=== PATIENT | female | born 1965 | race African-American/Black ===

== ENCOUNTER 2017-11-26 11:02 | Inpatient (IN) | payer OTHER ==
[2017-11-26 11:22] VITALS: BMI 28.8
--- NOTE | 2017-11-26 15:15 | HP ---
COWS - Scale Resting Pulse: 0= [place] 80 or Below Sweatin= Chills/Flushing Restless Observation: 0= Sits Still Pupil Size: 0= Normal to Room Light Bone or Joint Aches: 2= Severe Diffuse Aches Runny Nose/ Eye Tearin= Runny Nose/Eyes GI Upset > 30mins: 3= Vomiting/Diarrhea Tremor Observation: 0= None Yawning Observation: 1= 1-2x During Session Anxiety or Irritability: 2=Irritable/Anxious Goose Flesh Skin: 3=Piloerection COWS Score: 14 Admission ROS S - HPI Chief Complaint: "I need to get help." Patient is here to Detox fro Heroin. Allergies/Adverse Reactions: Allergies Allergy/AdvReac Type Severity Reaction Status Date / Time No Known Allergies Allergy Verified 11/26/17 14:15 History of Present Illness: Patient is a 52 YO female here to Detox from Heroin. This is patient's first detox admission at [facility]. Patient had a Detox admission at [facility] ( [place], [place] in 2017. Exam Limitations: No Limitations - Ebola screening Have you traveled outside of the country in the last 21 days: No Have you had contact with anyone from an Ebola affected area: No Have you been sick,other than usual withdrawal symptoms: No Do you have a fever: No - Review of Systems Constitutional: Chills, Diaphoresis, Fever, Malaise, Night Sweats, Changes in sleep EENT: reports: Blurred Vision, Nose Congestion, Sinus Pressure Respiratory: reports: No Symptoms reported Cardiac: reports: No Symptoms Reported GI: reports: Diarrhea, Nausea, Vomiting, Abdominal cramping : reports: No Symptoms Reported Musculoskeletal: reports: No Symptoms Reported Integumentary: reports: No Symptoms Reported Neuro: reports: No Symptoms reported Endocrine: reports: No Symptoms Reported Hematology: reports: No Symptoms Reported Psychiatric: reports: Judgement Intact, Mood/Affect Appropiate, Orientated x3, Anxious, Depressed (Meds. in past; none Currently. Zoenolanbrit sees a Psychiatrist as an outpatient; declnies to have Psychaitric consultation while admitted for Detox.) Other Systems: Reviewed and Negative Patient History - Patient Medical History Hx Anemia: No Hx Asthma: No Hx Chronic Obstructive Pulmonary Disease (COPD): No Hx Cancer: No Hx Cardiac Disorders: No Hx Congestive Heart Failure: No Hx Hypertension: No Hx Hypercholesterolemia: No Hx Pacemaker: No HX Cerebrovascular Accident: No Hx Seizures: No Hx Dementia: No Hx Diabetes: No Hx Gastrointestinal Disorders: No Hx Liver Disease: No Hx Genitourinary Disorders: No Hx Sexually Transmitted Disorders: No Hx Renal Disease (ESRD): No Hx Thyroid Disease: No Hx Human Immunodeficiency Virus (HIV): No (Last Tested: 06/2017) Hx Hepatitis C: No (Last Tested: 06/2017) Hx Depression: Yes (Meds. in past, none currently.) Hx Suicide Attempt: No (PATIENT DENIES CURRENT SI / HI.) Hx Bipolar Disorder: No Hx Schizophrenia: No Other Medical History: DENIES. - Patient Surgical History Past Surgical History: No Hx Neurologic Surgery: No Hx Cataract Extraction: No Hx Cardiac Surgery: No Hx Lung Surgery: No Hx Breast Surgery: No Hx Breast Biopsy: No Hx Abdominal Surgery: No Hx Appendectomy: No Hx Cholecystectomy: No Hx Genitourinary Surgery: No Hx Section: No Hx Orthopedic Surgery: No Other Surgical History: DENIES. Anesthesia Reaction: No - PPD History Previous Implant?: Yes Documented Results: Negative w/o proof Implanted On Prior [facility] Admission?: No PPD to be Administered?: Yes - Reproductive History Patient is a Female of Child Bearing Age (11 -55 yrs old): Yes LMP comment: 2013 Patient : No - Smoking Cessation Smoking history: Current every day smoker Have you smoked in the past 12 months: Yes Aproximately how many cigarettes per day: 10 Cigars Per Day: 0 Hx Chewing Tobacco Use: No Initiated information on smoking cessation: Yes 'Breaking Loose' booklet given: 11/26/17 (GIVEN TO PATIENT.) - Substance & Tx. History Hx Alcohol Use: No Hx Substance Use: Yes Substance Use Type: Cocaine, Heroin Hx Substance Use Treatment: Yes (Previous Detox admisision at [facility] ([place], [place]): 2017) - Substances Abused Heroin Route: Inhalation Frequency: Daily Amount used: 8-9 bags Age of first use: 15 Date of Last Use: 11/25/17 Crack Route: Smoking Frequency: Daily Amount used: $50-60 Age of first use: 15 Date of Last Use: 11/25/17 Family Disease History - Family Disease History Family History: Denies Admission Physical Exam BHS - Vital Signs Vital Signs: Vital Signs - 24 hr 11/26/17 11:16 Temperature 96.7 F L Pulse Rate 69 Respiratory 20 Rate Blood Pressure 129/74 - Physical General Appearance: Yes: No Apparent Distress, Nourished, Appropriately Dressed HEENTM: Yes: Hearing grossly Normal, Normocephalic, Normal Voice, CRISTEL, Pharynx Normal Respiratory: Yes: Chest Non-Tender, Lungs Clear, No Respiratory Distress, No Accessory Muscle Use Neck: Yes: No masses,lesions,Nodules, Supple, Trachea in good position Breast: Yes: Breast Exam Deferred Cardiology: Yes: Regular Rhythm, Regular Rate, S1, S2 Abdominal: Yes: Normal Bowel Sounds, Non Tender, Flat, Soft Genitourinary: Yes: Within Normal Limits Back: Yes: Normal Inspection Musculoskeletal: Yes: full range of Motion, Gait Steady Extremities: Yes: Normal Capillary Refill, Normal Range of Motion, Non-Tender Neurological: Yes: Fully Oriented, Alert, Normal Mood/Affect, Normal Response Integumentary: Yes: Normal Color, Dry, Warm Lymphatic: Yes: Within Normal Limits - Diagnostic (1) Opioid dependence with withdrawal Current Visit: Yes Status: Acute (2) Cocaine dependence, uncomplicated Current Visit: Yes Status: Acute (3) Nicotine dependence Current Visit: Yes Status: Chronic Qualifiers: Nicotine product type: cigarettes Substance use status: uncomplicated Qualified Code(s): F17.210 - Nicotine dependence, cigarettes, uncomplicated (4) History of depression Current Visit: Yes Status: Suspected Cleared for Admission [facility] - Detox or Rehab [facility] Level of Care: Medically Managed Detox Regimen/Protocol: Methadone [facility] Breath Alcohol Content Breath Alcohol Content: 0 Urine Pregancy Test - Result Urine Test Results: Negative- NO Line Present Urine Drug Screen - Results Drug Screen Negative: No Urine Drug Screen Results: PATY-Cocaine, OPI-Opiates, MTD-Methadone
[2017-11-26] MEDS ORDERED: MAGNESIUM HYDROX 2400MG/30ML ORAL SUSPENSION 30 ML CUP PO PRN (15:30)
[2017-11-26] MEDS ORDERED: NICOTINE POLACRILEX 2 MG GUM BC PRN (15:30)
[2017-11-26] MEDS ORDERED: METHADONE HCL 10 MG TABLET (FOR DETOX USE ONLY) PO ONE ×2 (15:30→23:00)
[2017-11-26] MEDS ORDERED: guaiFENesin/D-METHORPHAN HB 10 ML UNIT-DOSE CUPS PO PRN (15:30)
[2017-11-26] MEDS ORDERED: LOPERAMIDE HCL 2 MG CAPSULE PO PRN (15:30)
[2017-11-26] MEDS ORDERED: P-EPHED 60MG/TRIPROLIDI 2.5MG TABLET PO PRN (15:30)
[2017-11-26] MEDS ORDERED: MAG HYDROX/AL HYDROX/SIMETH 30 ML UNIT-DOSE CUP PO PRN (15:30)
[2017-11-26] MEDS ORDERED: MAGNESIUM CITRATE 300 ML BOTTLE PO PRN (15:30)
[2017-11-26] MEDS ORDERED: IBUPROFEN 400 MG TABLET (FP) PO PRN (15:30)
[2017-11-26] MEDS ORDERED: ACETAMINOPHEN 325 MG TABLET (FP) PO PRN (15:30)
[2017-11-26] MEDS ORDERED: MENTHOL/PHENOL 1 EACH UD MM PRN (15:30)
[2017-11-26] MEDS: diazePAM 5 MG TABLET PO PRN ×2 (17:20→22:21)
[2017-11-26] MEDS: NICOTINE 21 MG/24 HOURS TOPICAL PATCH TD SCH (17:21)
[2017-11-26] MEDS: THIAMINE HCL 100 MG TABLET (FP) PO SCH (22:21)
[2017-11-26] MEDS: MELATONIN 5 MG TABLETS PO PRN (22:22)
[2017-11-27 03:27] LABS: URINE APPEARANCE TURBID; URINE BILIRUBIN NEGATIVE (<2.0 mg/dL); URINE BLOOD NEGATIVE (NEGATIVE); URINE COLOR AMBER; URINE GLUCOSE (UA) NEGATIVE (NEGATIVE); URINE KETONE TRACE (NEGATIVE); URINE LEUK ESTERASE NEGATIVE (NEGATIVE); URINE NITRITE NEGATIVE (NEGATIVE)
[2017-11-27 03:39] LABS: URINE PROTEIN 1+ (NEGATIVE)
[2017-11-27 03:43] LABS: EPI CELLS MANY /HPF (FEW); URINE BACTERIA RARE /hpf (NONE SEEN); URINE HYALINE CAST 4 /lpf; URINE MUCUS RARE
[2017-11-27] MEDS: diazePAM 5 MG TABLET PO PRN ×4 (05:28→22:30)
[2017-11-27] MEDS ORDERED: METHADONE HCL 10 MG TABLET (FOR DETOX USE ONLY) PO ONE (10:00)
[2017-11-27] MEDS: PRENATAL VITAMINS W/ FOLIC ACID TABLET (FP) PO SCH (10:37)
[2017-11-27] MEDS: NICOTINE 21 MG/24 HOURS TOPICAL PATCH TD SCH (10:38)
[2017-11-27 11:16] LABS: HEMATOCRIT 33.6 % (32.4-45.2); HEMOGLOBIN 10.9 GM/dL (10.7-15.3); MCHC 32.4 g/dl (32.0-36.0); MEAN CELL VOLUME 92.6 fl (80-96); MEAN PLT VOLUME 8.1 fl (7.5-11.1); PLATELET COUNT 192 K/MM3 (134-434); RBC 3.63 M/mm3 (3.60-5.2); RDW 14.2 % (11.6-15.6); WHITE BLOOD COUNT 3.9 K/mm3 (4.0-10.0)
[2017-11-27 11:44] LABS: CHLORIDE 108 mmol/L (98-107); SODIUM 144 mmol/L (136-145)
--- NOTE | 2017-11-27 14:24 | PN ---
BHS COWS - Scale Resting Pulse: 0= [place] 80 or Below Sweatin= Chills/Flushing Restless Observation: 3= Extraneous Movement Pupil Size: 1= Pupils >than Normal Bone or Joint Aches: 2= Severe Diffuse Aches Runny Nose/ Eye Tearin= Runny Nose/Eyes GI Upset > 30mins: 2= Nausea/Diarrhea Tremor Observation of Outstretched Hands: 2= Slight Tremor Visible Yawning Observation: 1= 1-2x During Session Anxiety or Irritability: 2=Irritable/Anxious Goose Flesh Skin: 0=Smooth Skin COWS Score: 16 S Progress Note (SOAP) Subjective: ALERT,IRRITABLE,ANXIOUS,INTERRUPTED SLEEP,TREMOR,PAIN IN THE BODY AND BACK Objective: 11/27/17 14:21 Vital Signs Temperature 97.9 F 11/27/17 11:13 Pulse Rate 66 11/27/17 11:13 Respiratory Rate 18 11/27/17 11:13 Blood Pressure 123/77 11/27/17 11:13 O2 Sat by Pulse Oximetry (%) EKG SINUS BRADYCARDIA 59/MIN,INVERTED T IN 3,AVF,PROLONG QT 450/445 NO CHEST PAIN,NO SOB,NO DIZZINESS 11/27/17 14:23 Laboratory Last Values WBC 3.9 K/mm3 (4.0-10.0) L 11/27/17 06:20 RBC 3.63 M/mm3 (3.60-5.2) 11/27/17 06:20 Hgb 10.9 GM/dL (10.7-15.3) 11/27/17 06:20 Hct 33.6 % (32.4-45.2) 11/27/17 06:20 MCV 92.6 fl (80-96) 11/27/17 06:20 MCH 30.0 pg (25.7-33.7) 11/27/17 06:20 MCHC 32.4 g/dl (32.0-36.0) 11/27/17 06:20 RDW 14.2 % (11.6-15.6) 11/27/17 06:20 Plt Count 192 K/MM3 (134-434) 11/27/17 06:20 MPV 8.1 fl (7.5-11.1) 11/27/17 06:20 Sodium 144 mmol/L (136-145) 11/27/17 06:20 Potassium 4.0 mmol/L (3.5-5.1) 11/27/17 06:20 Chloride 108 mmol/L (98-107) H 11/27/17 06:20 Urine Color [place] 11/26/17 23:26 Urine Appearance Turbid 11/26/17 23:26 Urine pH 5.0 (5.0-8.0) 11/26/17 23:26 Ur Specific [place] 1.026 (1.001-1.035) 11/26/17 23:26 Urine Protein 1+ (NEGATIVE) H 11/26/17 23:26 Urine Glucose (UA) Negative (NEGATIVE) 11/26/17 23:26 Urine Ketones Trace (NEGATIVE) H 11/26/17 23:26 Urine Blood Negative (NEGATIVE) 11/26/17 23:26 Urine Nitrite Negative (NEGATIVE) 11/26/17 23:26 Urine Bilirubin Negative (<2.0 mg/dL) 11/26/17 23:26 Urine Urobilinogen 2.0 mg/dL (0.2-1.0) H 11/26/17 23:26 Ur Leukocyte Esterase Negative (NEGATIVE) 11/26/17 23:26 Urine WBC (Auto) 1 /hpf (3-5) 11/26/17 23:26 Urine RBC (Auto) 7 /hpf (0-3) 11/26/17 23:26 Ur Epithelial Cells Many /HPF (FEW) 11/26/17 23:26 Urine Bacteria Rare /hpf (NONE SEEN) 11/26/17 23:26 Hyaline Casts 4 /lpf 11/26/17 23:26 Urine Mucus Rare 11/26/17 23:26 RPR Titer Nonreactive (NONREACTIVE) 11/27/17 06:20 11/27/17 14:23 LABS PENDING Assessment: 11/27/17 14:22 WITHDRAWAL SYMPTOM Plan: CONTINUE DETOX
[2017-11-27] MEDS: CYCLOBENZAPRINE HCL 10 MG TABLET (FP) PO PRN (14:25)
[2017-11-27] MEDS: cloNIDine HCL 0.1 MG TABLET PO SCH ×2 (14:25→22:30)
[2017-11-27 14:42] LABS: ALBUMIN 3.4 g/dl (3.4-5.0); ALK PHOS 110 U/L (45-117); ANION GAP 3 (8-16); BLOOD UREA NITROGEN 11 mg/dL (7-18); CALCIUM 8.6 mg/dL (8.5-10.1); CO2 27 mmol/L (21-32); CREATININE 1.1 mg/dL (0.55-1.02); GLUCOSE,RANDOM 74 mg/dL (74-106); SGOT/AST 26 U/L (15-37); SGPT/ALT 25 U/L (12-78); TOT PROT 6.8 g/dl (6.4-8.2)
[2017-11-27 14:44] LABS: BILIRUBIN,TOTAL < 0.1 mg/dL (0.2-1.0)
--- NOTE | 2017-11-27 18:29 | EKG ---
Test Reason : Blood Pressure : / mmHG Vent. Rate : 056 BPM Atrial Rate : 056 BPM P-R Int : 154 ms QRS Dur : 078 ms QT Int : 446 ms P-R-T Axes : 053 056 025 degrees QTc Int : 430 ms SINUS BRADYCARDIA WITH SINUS ARRHYTHMIA NONSPECIFIC T WAVE ABNORMALITY POSSIBLE OLD LATERAL INFARCT ABNORMAL ECG NO PREVIOUS ECGS AVAILABLE Confirmed by MD GHULAM, VENKAT ([id number]) on 11/27/2017 6:28:49 PM Referred By: Confirmed By:VENKAT PARMAR MD
[2017-11-27] MEDS: THIAMINE HCL 100 MG TABLET (FP) PO SCH (22:30)
[2017-11-28] MEDS: CYCLOBENZAPRINE HCL 10 MG TABLET (FP) PO PRN (04:27)
[2017-11-28] MEDS ORDERED: METHADONE HCL 5 MG TABLET (FOR DETOX USE ONLY) PO ONE (10:00)
[2017-11-28] MEDS: PRENATAL VITAMINS W/ FOLIC ACID TABLET (FP) PO SCH (10:46)
[2017-11-28] MEDS: diazePAM 5 MG TABLET PO PRN (10:46)
[2017-11-28] MEDS: NICOTINE 21 MG/24 HOURS TOPICAL PATCH TD SCH (10:46)
[2017-11-28] MEDS: cloNIDine HCL 0.1 MG TABLET PO SCH ×2 (10:47→22:15)
--- NOTE | 2017-11-28 11:00 | PN ---
BHS COWS - Scale Resting Pulse: 1= [place] 81-100 Sweatin= Chills/Flushing Restless Observation: 1= Difficult to Sit Still Pupil Size: 1= Pupils >than Normal Bone or Joint Aches: 1= Mild Discomfort Runny Nose/ Eye Tearin= Nasal Congestion GI Upset > 30mins: 1= Stomach Cramp Tremor Observation of Outstretched Hands: 2= Slight Tremor Visible Yawning Observation: 2= >3x During Session Anxiety or Irritability: 2=Irritable/Anxious Goose Flesh Skin: 0=Smooth Skin COWS Score: 13 BHS Progress Note (SOAP) Subjective: joint ache body pain sweat tremor anxiety restlessness irritable Objective: 11/28/17 10:58 Vital Signs Temperature 97.3 F L 11/28/17 10:00 Pulse Rate 63 11/28/17 10:00 Respiratory Rate 18 11/28/17 10:00 Blood Pressure 109/70 11/28/17 10:00 O2 Sat by Pulse Oximetry (%) Laboratory Last Values WBC 3.9 K/mm3 (4.0-10.0) L 11/27/17 06:20 RBC 3.63 M/mm3 (3.60-5.2) 11/27/17 06:20 Hgb 10.9 GM/dL (10.7-15.3) 11/27/17 06:20 Hct 33.6 % (32.4-45.2) 11/27/17 06:20 MCV 92.6 fl (80-96) 11/27/17 06:20 MCH 30.0 pg (25.7-33.7) 11/27/17 06:20 MCHC 32.4 g/dl (32.0-36.0) 11/27/17 06:20 RDW 14.2 % (11.6-15.6) 11/27/17 06:20 Plt Count 192 K/MM3 (134-434) 11/27/17 06:20 MPV 8.1 fl (7.5-11.1) 11/27/17 06:20 Sodium 144 mmol/L (136-145) 11/27/17 06:20 Potassium 4.0 mmol/L (3.5-5.1) 11/27/17 06:20 Chloride 108 mmol/L (98-107) H 11/27/17 06:20 Carbon Dioxide 27 mmol/L (21-32) 11/27/17 06:20 Anion Gap 3 (8-16) L 11/27/17 06:20 BUN 11 mg/dL (7-18) 11/27/17 06:20 Creatinine 1.1 mg/dL (0.55-1.02) H 11/27/17 06:20 Creat Clearance w eGFR 51.76 (>60) 11/27/17 06:20 Random Glucose 74 mg/dL (74-106) 11/27/17 06:20 Calcium 8.6 mg/dL (8.5-10.1) 11/27/17 06:20 Total Bilirubin < 0.1 mg/dL (0.2-1.0) L 11/27/17 06:20 AST 26 U/L (15-37) 11/27/17 06:20 ALT 25 U/L (12-78) 11/27/17 06:20 Alkaline Phosphatase 110 U/L (45-117) 11/27/17 06:20 Total Protein 6.8 g/dl (6.4-8.2) 11/27/17 06:20 Albumin 3.4 g/dl (3.4-5.0) 11/27/17 06:20 Urine Color [place] 11/26/17 23:26 Urine Appearance Turbid 11/26/17 23:26 Urine pH 5.0 (5.0-8.0) 11/26/17 23:26 Ur Specific [place] 1.026 (1.001-1.035) 11/26/17 23:26 Urine Protein 1+ (NEGATIVE) H 11/26/17 23:26 Urine Glucose (UA) Negative (NEGATIVE) 11/26/17 23:26 Urine Ketones Trace (NEGATIVE) H 11/26/17 23:26 Urine Blood Negative (NEGATIVE) 11/26/17 23:26 Urine Nitrite Negative (NEGATIVE) 11/26/17 23:26 Urine Bilirubin Negative (<2.0 mg/dL) 11/26/17 23:26 Urine Urobilinogen 2.0 mg/dL (0.2-1.0) H 11/26/17 23:26 Ur Leukocyte Esterase Negative (NEGATIVE) 11/26/17 23:26 Urine WBC (Auto) 1 /hpf (3-5) 11/26/17 23:26 Urine RBC (Auto) 7 /hpf (0-3) 11/26/17 23:26 Ur Epithelial Cells Many /HPF (FEW) 11/26/17 23:26 Urine Bacteria Rare /hpf (NONE SEEN) 11/26/17 23:26 Hyaline Casts 4 /lpf 11/26/17 23:26 Urine Mucus Rare 11/26/17 23:26 RPR Titer Nonreactive (NONREACTIVE) 11/27/17 06:20 lab noted Assessment: 11/28/17 10:59 withdrawal sx back ache Plan: continue detox lidocain patch muscle relaxant
[2017-11-28] MEDS ORDERED: BACLOFEN 10 MG TABLET (FP) PO PRN (11:01)
[2017-11-28] MEDS: LIDOCAINE 5% TOPICAL PATCH TP SCH (12:30)
--- NOTE | 2017-11-28 16:32 | EKG ---
Test Reason : Blood Pressure : / mmHG Vent. Rate : 059 BPM Atrial Rate : 059 BPM P-R Int : 154 ms QRS Dur : 096 ms QT Int : 450 ms P-R-T Axes : 055 054 012 degrees QTc Int : 445 ms SINUS BRADYCARDIA NONSPECIFIC T WAVE ABNORMALITY ABNORMAL ECG WHEN COMPARED WITH ECG OF 26-NOV-2017 17:25, NO SIGNIFICANT CHANGE WAS FOUND Confirmed by MD GHULAM, VENKAT ([id number]) on 11/28/2017 4:31:45 PM Referred By: Confirmed By:VENKAT PARMAR MD
[2017-11-28] MEDS: THIAMINE HCL 100 MG TABLET (FP) PO SCH (22:15)
[2017-11-28] MEDS: LIDOCAINE PATCH REMOVAL MC SCH (22:17)
[2017-11-29] MEDS ORDERED: METHADONE HCL 5 MG TABLET (FOR DETOX USE ONLY) PO ONE (10:00)
[2017-11-29] MEDS: cloNIDine HCL 0.1 MG TABLET PO SCH ×2 (10:20→22:27)
[2017-11-29] MEDS: PRENATAL VITAMINS W/ FOLIC ACID TABLET (FP) PO SCH (10:32)
[2017-11-29] MEDS: LIDOCAINE 5% TOPICAL PATCH TP SCH (10:32)
[2017-11-29] MEDS: NICOTINE 21 MG/24 HOURS TOPICAL PATCH TD SCH (10:33)
--- NOTE | 2017-11-29 11:32 | PN ---
S Progress Note (SOAP) Subjective: ALERT,IRRITABLE,ANXIOUS,INTERRUPTED SLEEP,PAIN IN THE BODY AND BACK, Objective: 11/29/17 11:29 Vital Signs Temperature 97.7 F 11/29/17 09:03 Pulse Rate 64 11/29/17 09:03 Respiratory Rate 18 11/29/17 09:03 Blood Pressure 95/51 11/29/17 09:03 O2 Sat by Pulse Oximetry (%) 11/29/17 11:29 WITHDRAWAL SYMPTOM 11/29/17 11:30 Laboratory Last Values WBC 3.9 K/mm3 (4.0-10.0) L 11/27/17 06:20 RBC 3.63 M/mm3 (3.60-5.2) 11/27/17 06:20 Hgb 10.9 GM/dL (10.7-15.3) 11/27/17 06:20 Hct 33.6 % (32.4-45.2) 11/27/17 06:20 MCV 92.6 fl (80-96) 11/27/17 06:20 MCH 30.0 pg (25.7-33.7) 11/27/17 06:20 MCHC 32.4 g/dl (32.0-36.0) 11/27/17 06:20 RDW 14.2 % (11.6-15.6) 11/27/17 06:20 Plt Count 192 K/MM3 (134-434) 11/27/17 06:20 MPV 8.1 fl (7.5-11.1) 11/27/17 06:20 Sodium 144 mmol/L (136-145) 11/27/17 06:20 Potassium 4.0 mmol/L (3.5-5.1) 11/27/17 06:20 Chloride 108 mmol/L (98-107) H 11/27/17 06:20 Carbon Dioxide 27 mmol/L (21-32) 11/27/17 06:20 Anion Gap 3 (8-16) L 11/27/17 06:20 BUN 11 mg/dL (7-18) 11/27/17 06:20 Creatinine 1.1 mg/dL (0.55-1.02) H 11/27/17 06:20 Creat Clearance w eGFR 51.76 (>60) 11/27/17 06:20 Random Glucose 74 mg/dL (74-106) 11/27/17 06:20 Calcium 8.6 mg/dL (8.5-10.1) 11/27/17 06:20 Total Bilirubin < 0.1 mg/dL (0.2-1.0) L 11/27/17 06:20 AST 26 U/L (15-37) 11/27/17 06:20 ALT 25 U/L (12-78) 11/27/17 06:20 Alkaline Phosphatase 110 U/L (45-117) 11/27/17 06:20 Total Protein 6.8 g/dl (6.4-8.2) 11/27/17 06:20 Albumin 3.4 g/dl (3.4-5.0) 11/27/17 06:20 Urine Color [place] 11/26/17 23:26 Urine Appearance Turbid 11/26/17 23:26 Urine pH 5.0 (5.0-8.0) 11/26/17 23:26 Ur Specific [place] 1.026 (1.001-1.035) 11/26/17 23:26 Urine Protein 1+ (NEGATIVE) H 11/26/17 23:26 Urine Glucose (UA) Negative (NEGATIVE) 11/26/17 23:26 Urine Ketones Trace (NEGATIVE) H 11/26/17 23:26 Urine Blood Negative (NEGATIVE) 11/26/17 23:26 Urine Nitrite Negative (NEGATIVE) 11/26/17 23:26 Urine Bilirubin Negative (<2.0 mg/dL) 11/26/17 23:26 Urine Urobilinogen 2.0 mg/dL (0.2-1.0) H 11/26/17 23:26 Ur Leukocyte Esterase Negative (NEGATIVE) 11/26/17 23:26 Urine WBC (Auto) 1 /hpf (3-5) 11/26/17 23:26 Urine RBC (Auto) 7 /hpf (0-3) 11/26/17 23:26 Ur Epithelial Cells Many /HPF (FEW) 11/26/17 23:26 Urine Bacteria Rare /hpf (NONE SEEN) 11/26/17 23:26 Hyaline Casts 4 /lpf 11/26/17 23:26 Urine Mucus Rare 11/26/17 23:26 RPR Titer Nonreactive (NONREACTIVE) 11/27/17 06:20 Assessment: 11/29/17 11:31 WITHDRAWAL SYMPTOM Plan: CONTINUE DETOX
[2017-11-29] MEDS: MELATONIN 5 MG TABLETS PO PRN (22:27)
[2017-11-29] MEDS: THIAMINE HCL 100 MG TABLET (FP) PO SCH (22:27)
[2017-11-29] MEDS: LIDOCAINE PATCH REMOVAL MC SCH (22:28)
[2017-11-30] MEDS ORDERED: METHADONE HCL 10 MG TABLET (FOR DETOX USE ONLY) PO ONE (10:00)
[2017-11-30] MEDS: NICOTINE 21 MG/24 HOURS TOPICAL PATCH TD SCH (10:11)
[2017-11-30] MEDS: PRENATAL VITAMINS W/ FOLIC ACID TABLET (FP) PO SCH (10:11)
[2017-11-30] MEDS: cloNIDine HCL 0.1 MG TABLET PO SCH ×2 (10:11→22:20)
[2017-11-30] MEDS: LIDOCAINE 5% TOPICAL PATCH TP SCH (10:11)
--- NOTE | 2017-11-30 11:09 | PN ---
S Progress Note (SOAP) Subjective: ALERT,IRRITABLE,INTERRUPTED SLEEP Objective: 11/30/17 11:08 Vital Signs Temperature 97.7 F 11/30/17 05:58 Pulse Rate 55 L 11/30/17 05:58 Respiratory Rate 18 11/30/17 05:58 Blood Pressure 100/60 11/30/17 05:58 O2 Sat by Pulse Oximetry (%) Assessment: 11/30/17 11:08 WITHDRAWAL SYMPTOM Plan: CONTINUE DETOX,DISCHARGE IN AM AT 0700
[2017-11-30] MEDS: MELATONIN 5 MG TABLETS PO PRN (22:21)
[2017-11-30] MEDS: THIAMINE HCL 100 MG TABLET (FP) PO SCH (22:21)
[2017-11-30] MEDS: LIDOCAINE PATCH REMOVAL MC SCH (22:22)
[2017-12-01] MEDS ORDERED: METHADONE HCL 5 MG TABLET (FOR DETOX USE ONLY) PO ONE (06:00)
[2017-12-01 06:24] VITALS: BP 112/60; PULSE 56; TEMP 97.1
--- NOTE | 2017-12-01 08:29 | PN ---
S Progress Note (SOAP) Subjective: ALERT,NO COMPLAINT Objective: 12/01/17 08:27 Vital Signs Temperature 97.1 F L 12/01/17 06:23 Pulse Rate 56 L 12/01/17 06:23 Respiratory Rate 18 12/01/17 06:23 Blood Pressure 112/60 12/01/17 06:23 O2 Sat by Pulse Oximetry (%) Assessment: 12/01/17 08:28 DETOX COMPLETED,NO WITHDRAWAL SYMPTOM Plan: DISCHARGE TODAY,FOLLOW UP WITH AFTER CARE PROGRAM ARRANGEMENT
--- NOTE | 2017-12-01 08:32 | DS ---
[facility] Detox Discharge Summary Admission Date: 11/26/17 Discharge Date: 12/01/17 - History Present History: Cocaine Dependence, Opioid Dependence Additional Comments: FOLLOW UP WITH AFTER CARE PROGRAM ARRANGEMENT Pertinent Past History: NICOTINE DEPENDENCE - Physical Exam Results Vital Signs: Vital Signs Temperature 97.1 F L 12/01/17 06:23 Pulse Rate 56 L 12/01/17 06:23 Respiratory Rate 18 12/01/17 06:23 Blood Pressure 112/60 12/01/17 06:23 O2 Sat by Pulse Oximetry (%) Pertinent Admission Physical Exam Findings: WITHDRAWAL SIGNS AND SYMPTOM Laboratory Last Values WBC 3.9 K/mm3 (4.0-10.0) L 11/27/17 06:20 RBC 3.63 M/mm3 (3.60-5.2) 11/27/17 06:20 Hgb 10.9 GM/dL (10.7-15.3) 11/27/17 06:20 Hct 33.6 % (32.4-45.2) 11/27/17 06:20 MCV 92.6 fl (80-96) 11/27/17 06:20 MCH 30.0 pg (25.7-33.7) 11/27/17 06:20 MCHC 32.4 g/dl (32.0-36.0) 11/27/17 06:20 RDW 14.2 % (11.6-15.6) 11/27/17 06:20 Plt Count 192 K/MM3 (134-434) 11/27/17 06:20 MPV 8.1 fl (7.5-11.1) 11/27/17 06:20 Sodium 144 mmol/L (136-145) 11/27/17 06:20 Potassium 4.0 mmol/L (3.5-5.1) 11/27/17 06:20 Chloride 108 mmol/L (98-107) H 11/27/17 06:20 Carbon Dioxide 27 mmol/L (21-32) 11/27/17 06:20 Anion Gap 3 (8-16) L 11/27/17 06:20 BUN 11 mg/dL (7-18) 11/27/17 06:20 Creatinine 1.1 mg/dL (0.55-1.02) H 11/27/17 06:20 Creat Clearance w eGFR 51.76 (>60) 11/27/17 06:20 Random Glucose 74 mg/dL (74-106) 11/27/17 06:20 Calcium 8.6 mg/dL (8.5-10.1) 11/27/17 06:20 Total Bilirubin < 0.1 mg/dL (0.2-1.0) L 11/27/17 06:20 AST 26 U/L (15-37) 11/27/17 06:20 ALT 25 U/L (12-78) 11/27/17 06:20 Alkaline Phosphatase 110 U/L (45-117) 11/27/17 06:20 Total Protein 6.8 g/dl (6.4-8.2) 11/27/17 06:20 Albumin 3.4 g/dl (3.4-5.0) 11/27/17 06:20 Urine Color [place] 11/26/17 23:26 Urine Appearance Turbid 11/26/17 23:26 Urine pH 5.0 (5.0-8.0) 11/26/17 23:26 Ur Specific [place] 1.026 (1.001-1.035) 11/26/17 23:26 Urine Protein 1+ (NEGATIVE) H 11/26/17 23:26 Urine Glucose (UA) Negative (NEGATIVE) 11/26/17 23:26 Urine Ketones Trace (NEGATIVE) H 11/26/17 23:26 Urine Blood Negative (NEGATIVE) 11/26/17 23:26 Urine Nitrite Negative (NEGATIVE) 11/26/17 23:26 Urine Bilirubin Negative (<2.0 mg/dL) 11/26/17 23:26 Urine Urobilinogen 2.0 mg/dL (0.2-1.0) H 11/26/17 23:26 Ur Leukocyte Esterase Negative (NEGATIVE) 11/26/17 23:26 Urine WBC (Auto) 1 /hpf (3-5) 11/26/17 23:26 Urine RBC (Auto) 7 /hpf (0-3) 11/26/17 23:26 Ur Epithelial Cells Many /HPF (FEW) 11/26/17 23:26 Urine Bacteria Rare /hpf (NONE SEEN) 11/26/17 23:26 Hyaline Casts 4 /lpf 11/26/17 23:26 Urine Mucus Rare 11/26/17 23:26 RPR Titer Nonreactive (NONREACTIVE) 11/27/17 06:20 Vital Signs Temperature 97.1 F L 12/01/17 06:23 Pulse Rate 56 L 12/01/17 06:23 Respiratory Rate 18 12/01/17 06:23 Blood Pressure 112/60 12/01/17 06:23 O2 Sat by Pulse Oximetry (%) - Treatment Hospital Course: Detox Protocol Followed, Detoxed Safely, Responded well, Discharged Condition Good, Rehab Referral Accepted Patient has Accepted a Rehab Referral to: DECLINED - Medication Discharge Medications: Ambulatory Orders NK [No Known Home Medication] 11/26/17 - Diagnosis (1) Opioid dependence with withdrawal Current Visit: Yes Status: Acute (2) Cocaine dependence, uncomplicated Current Visit: Yes Status: Acute (3) Nicotine dependence Current Visit: Yes Status: Chronic Qualifiers: Nicotine product type: cigarettes Substance use status: uncomplicated Qualified Code(s): F17.210 - Nicotine dependence, cigarettes, uncomplicated - AMA Did Patient Leave Against Medical Advice: No
== END 2017-12-01 08:50 | disposition home or self-care (01) | DRG 773 ==
LOC: YASAS 11:02 → Y6N 15:59
PROVIDERS: ADMIT Internal Medicine; ATTEND Internal Medicine
PROC: HZ2ZZZZ Detoxification Services for Substance Abuse Treatment (ICD-10-PCS; principal; 2017-11-26)
DX: F11.23 Opioid dependence with withdrawal (principal); F14.20 Cocaine dependence, uncomplicated; F17.210 Nicotine dependence, cigarettes, uncomplicated; Z86.59 Personal history of other mental and behavioral disorders; F32.9 Major depressive disorder, single episode, unspecified
CPT/HCPCS: 36415; 80053; 81003; 81015; 85027; 86593; 93005; 93010; J0735